=== PATIENT | male | born 1945 | race Caucasian/White ===

== ENCOUNTER 2017-07-30 07:00 | Inpatient (IN) | payer OTHER, MEDICARE ==
--- NOTE | 2017-07-25 15:23 | MH ---
cc: CLAUDETTE SIDHU DATE OF ADMISSION 07/30/2017 ADMITTING DIAGNOSIS Osteoarthritis of the left knee, varus deformity left knee, patellofemoral disorder left knee and pain of the left knee. HISTORY The patient is a 72-year-old white male who has had a rather lengthy history of pain involving his left knee. His history extended back to 1997 at which time the patient underwent an anterior cruciate ligament reconstruction as completed in the [facility]. The patient described an uneventful recovery at that time and for a number years thereafter he did reasonably well until approximately 2003 when he began to note recurrent soreness about his left knee. Initially he did not seek any follow-up evaluation or treatment but became progressively more symptomatic with pain for which he had undergone additional orthopedic evaluation in [address] Klarissa Be. The patient reports that he was diagnosed as having an arthritic condition for which he was instructed to begin taking Aleve. He did not seek any further disposition but attempted to conform to conservative modalities which included exercise activities which he had previously been instructed regarding prior therapy intervention. With the passage of time he became progressively more symptomatic with pain for which he was having difficulty conforming to his daily routine while continuing to take Aleve on a regular basis. He had been conforming to a regular exercise program but began to note obvious limitations with regards to this routine because of aggravation associated with weightbearing activities. He presented to the undersigned physician in June of this year and at that time x-ray studies revealed obvious degenerative change with near [id number] apposition about the medial compartment associated with a varus deformity of at least 10 degrees magnitude and secondary involvement of the patellofemoral articulation. A sclerotic tunnel effect was noted in the proximal tibia that was consistent with his prior history of ACL reconstruction. Findings and treatment options were reviewed with the patient at that time, the pros and cons of continuing with conservative management versus operative intervention that would involve total knee arthroplasty were outlined in detail. Emphasis was made regarding the fact that the decision to proceed with surgery would be left entirely to the patient's discretion. The patient indicated he was not interested in pursuing any additional conservative modalities at that time given his previous experience associated with his lack of improvement with continued conservative modalities as noted above and associated incapacitation with regards to all activities of daily living which included his inability to conform to a regular walking program. The patient indicated his desire to proceed with surgery as had previously been discussed and in compliance with his wishes he has been scheduled for admission at this time in order that the above be accomplished. PAST MEDICAL HISTORY HOSPITALIZATIONS AND SURGERIES 1. Surgery of his left knee involving ACL reconstruction. 2. Tonsillectomy. 3. Bilateral cataract excision with intraocular lens implants. 4. Colonoscopy. 5. Lumbar laminectomy. 6. Surgical stabilization of a fracture of the right index finger. MEDICAL ILLNESSES Macular degeneration. CURRENT MEDICATIONS 1. Multivitamin tablet daily. 2. I-caps twice daily. 3. Aleve daily. 4. Ocuvite eye drops. ALLERGIES The patient describes a drug allergy to PENICILLIN apparently noted during childhood but he is unable to be more specific with regards to an actual reaction noted. REVIEW OF SYSTEMS HEENT: He does wear glasses for reading purposes. Denies headache, seizure or syncope. No sinus congestion or epistaxis. Diminished auditory acuity for which bilateral hearing aids are utilized. No tinnitus. No bleeding gums or dysphagia. RESPIRATORY: Denies cough, shortness of breath, upper respiratory infection, pneumonia or tuberculosis. CARDIOVASCULAR: No angina or heart disease. GI: His appetite is good. Bowel movements are regular. No hepatitis, gallbladder disease, ulcers or hemorrhoids. : No urinary tract infection. No kidney stones. No prostate disease. MUSCULOSKELETAL: A history of a fracture of the left hand in addition to the right index finger as described. PSYCH: No psychiatric illness. His remaining review of systems is unremarkable and noncontributory. FAMILY HISTORY The patient has been a for 4 years, his at 67 years of age with a history of heart disease. He has two sons and one daughter, all of whom are described as being in good health. Family history is unremarkable for diabetes, tuberculosis, hypertension, carcinoma, heart, liver or kidney disease. Family history is positive for dementia. 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 He achieved a BS college degree. He denies active use of tobacco for at least 35 years but had been approximately a one-pack per day smoker for 20 years prior to that time. Ethanol consumption in the form of two to three beers daily. PHYSICAL EXAMINATION VITAL SIGNS: Height 5 feet, 8 inches, weight 192 pounds. GENERAL: An alert, oriented and responsive 72-year-old white male who sits quietly upon the examination table with no obvious distress. HEAD, EYES, EARS, NOSE, AND THROAT: Pupils are equally round and reactive to light. Extraocular movements full. Sclerae clear. External nares clear. External auditory canals clear. Semi-edentulous in the mandibular distribution. Mucous membranes pink and moist. Pharynx clear. NECK: Supple. Active range of motion without appreciable pain. Carotid pulse palpable bilaterally. Trachea midline. Thyroid without enlargement. LUNGS: Clear to auscultation and percussion. No CVA tenderness. No discomfort throughout the dorsolumbar spine. HEART: Regular rhythm. No murmur or gallop. ABDOMEN: Soft, nontender. Bowel sounds present. RECTAL: Per primary care physician. EXTREMITIES: Left knee: A well-healed surgical wound about the anterior aspect of the left knee consistent with prior history of surgery. There is no appreciable swelling or effusion. A bony prominence about the medial tibial plateau suggestive of underlying arthritic deformity. Apprehension and compression sign negative. Limited mobility towards the extremes of flexion beyond 115 degrees with subtle suggestion for crepitation. No collateral ligamentous instability. Shannon test and drawer sign negative. Pivot shift and Carroll sign positive for medial compartment pain. Straight-leg raising unremarkable at 80 degrees. Slight limitation of mobility about the left hip with internal rotation but no pain associated. Paul sign negative. Distal sensory grossly intact. Mild antalgic gait. NEUROLOGIC: Cranial nerves II-XII grossly intact excluding diminished auditory acuity. IMPRESSION Osteoarthritis of the left knee, varus deformity left knee, patellofemoral disorder left knee, pain left knee. PLAN Left total knee arthroplasty. The nature of the planned surgical procedure, the potential complications and risks associated, the expectations of surgery and the consent form were thoroughly reviewed with the patient prior to his admission to the hospital. Sergei has indicated his full understanding regarding all of the above and given consent to proceed with treatment as outlined. Medical evaluation and clearance for surgery will be completed by his primary care physician, Dr. Danette Shafer. Claudette Sidhu MD NBS/SSB /4:39 PM /3:19 PM
[~2017-07-30] VITALS: Ht 170.2 cm; Wt 86.7 kg
[2017-08-19] MEDS ORDERED: ALEV220T14 PO (07:44)
[2017-08-19] MEDS ORDERED: OCUVTAB4 PO (07:44)
[2017-08-19] MEDS ORDERED: MULT-65 PO (07:44)
--- NOTE | 2017-08-26 09:35 | MH ---
cc: Doyle Sidhu MD DATE OF ADMISSION: 08/28/2017 ADDENDUM: ADMITTING DIAGNOSIS: Osteoarthritis of the left knee, varus deformity, left knee, patellofemoral disorder, left knee, and pain in the left knee. Mr. Bermudez is a 72-year-old white male who had recently been scheduled to be admitted to the hospital for the above diagnosis in the anticipation of undergoing a left total knee arthroplasty. Prior to that admission, he was completing medical evaluation with his primary care physician who recommended that prior to surgery, he undergo a cardiac evaluation, which has subsequently been completed and the patient able to receive cardiac clearance in this regard. The patient contacted the office thereafter expressing his desire to proceed with surgery as had previously been planned and in compliance with his wishes, he was rescheduled for admission at this time. The remaining details of his history, as well as the pertinent findings of his physical examination, remain unchanged. Once again, the patient has indicated his full understanding regarding the planned surgical procedure, the potential complications and risks associated, the expectations of surgery and a consent form. In compliance with his wishes, he is being admitted at this time in order that left total knee arthroplasty be accomplished. Doyle Sidhu MD NBS/TI , 09:03 AM , 09:34 AM
[2017-08-28] MEDS ORDERED: CHLORHEXIDINE GLUCONATE 2 % 1 PACK (2 CLOTHS) TOPICAL PRN (08:15)
[2017-08-28] MEDS ORDERED: POVIDONE IODINE 7.5% SCRUB 118 ML BOTTLE TOPICAL SCH (08:15)
[2017-08-28] MEDS ORDERED: METOPROLOL TARTRATE 25 MG TAB PO PRN (08:15)
[2017-08-28] MEDS ORDERED: LACTATED RINGER'S 1000 ML IV PRN (08:15)
[2017-08-28] MEDS ORDERED: SODIUM CHLORID 0.9% 500 ML IV PRN (08:15)
[2017-08-28] MEDS ORDERED: POVIDONE IODINE 5% (ANTISEPSIS KIT) 4 APPLICATIONS EACH NARE PRN (08:15)
[2017-08-28] MEDS ORDERED: TRANEXAMIC ACID 1 GM PRIOR TO PROCEDURE IV SCH ×2 (08:30)
[2017-08-28] MEDS ORDERED: SODIUM CHLORIDE 0.9% INJ 10 ML ONE (08:51)
[2017-08-28] MEDS ORDERED: MIDAZOLAM HCL 2 MG/2 ML VIAL ONE (08:51)
[2017-08-28] MEDS ORDERED: SODIUM CHLORIDE 0.9% 20 ML VIAL ONE (08:53)
[2017-08-28] MEDS ORDERED: ACETAMINOPHEN 1000 MG/100 ML 100 ML IV ONE ×2 (09:23→13:15)
[2017-08-28] MEDS ORDERED: FAMOTIDINE 20 MG/2 ML VIAL ONE (09:24)
[2017-08-28] MEDS ORDERED: GENTAMICIN SULFATE 80 MG/2 ML VIAL ONE (09:46)
[2017-08-28] MEDS ORDERED: VANCOMYCIN HCL 1000 MG VIAL ONE (09:46)
[2017-08-28] MEDS ORDERED: VANCOMYCIN 1000 MG/NS 250 ML (for <70 kg) IV SCH ×2 (10:15)
[2017-08-28] MEDS ORDERED: TRANEXAMIC ACID 1 GM POST-OP IV SCH ×2 (11:30)
[2017-08-28] MEDS ORDERED: LACTATED RINGER'S 1000 ML INJ 1,000 ML IV ONE (12:00)
[2017-08-28] MEDS ORDERED: LIDOCAINE HCL 1% PF 5 ML SYRINGE OTHER ONE (12:00)
[2017-08-28] MEDS ORDERED: ROCURONIUM INJ 50 MG/5 ML SYRINGE IV PUSH ONE (12:00)
[2017-08-28] MEDS ORDERED: NEOSTIGMINE 5 MG/5 ML SYRINGE IV PUSH ONE (12:00)
[2017-08-28] MEDS ORDERED: ONDANSETRON HCL 4 MG/2 ML VIAL IV ONE (12:00)
[2017-08-28] MEDS ORDERED: PROPOFOL 200 MG/20 ML AMP IV ONE (12:00)
[2017-08-28] MEDS ORDERED: GLYCOPYRROLATE 1 MG/5 ML SYRINGE IV PUSH ONE (12:00)
[2017-08-28] MEDS ORDERED: ePHEDrine/NS 25 MG/5 ML SYRINGE IV ONE (12:00)
[2017-08-28] MEDS ORDERED: DEXAMETHASONE SOD PHOS 4 MG/ML VIAL IV ONE (12:00)
[2017-08-28] MEDS ORDERED: KETOROLAC TROMETHAMINE 30 MG/ML (IVP) VIAL IV PUSH ONE (12:00)
[2017-08-28] MEDS ORDERED: DO NOT ADM ANY ANTICOAGULANT DRUGS PRN (12:08)
[2017-08-28] MEDS: DEXT 5%-NACL 0.45% 1000 ML INJ 1,000 ML IV SCH ×2 (12:18→20:25)
--- NOTE | 2017-08-28 12:22 | HHI.FF ---
Face to Face Verification Diagnosis: (1) DJD (degenerative joint disease) of knee Physical Therapy Gait training Knee: Total knee, Protocol: Left, Full weight bearing Left LE Weight Bearing: WB as tolerated Left LE Range of Motion: Active ROM Nursing Dressing Changes: Daily dressing change I have seen patient Sergei Bermudez on 08/28/17. My clinical findings support the need for the requested home health care services because: Limited ability to care for self High risk of falls I certify that my clinical findings support that this patient is homebound because: Post-op weakness Unsteady gait/balance Unsafe to leave home unassisted Doyle Sidhu MD Aug 28, 2017 12:22
[2017-08-28] MEDS ORDERED: *MEPERIDINE 25 MG INJ VIAL PERIprocedural Use ONLY ONE (12:23)
[2017-08-28] MEDS ORDERED: MORPHINE SULFATE 30 MG/30 ML PCA IV SCH (12:30)
[2017-08-28] MEDS ORDERED: ACETAMINOPHEN 325 MG TAB PO PRN (12:30)
[2017-08-28] MEDS ORDERED: DOCUSATE SODIUM 100 MG CAP PO PRN (12:30)
[2017-08-28] MEDS ORDERED: ONDANSETRON HCL 4 MG/2 ML VIAL IVP PRN (12:30)
[2017-08-28] MEDS ORDERED: ACETAMINOPHEN/HYDROcodone 325 MG/5 MG TAB PO PRN (12:30)
[2017-08-28] MEDS ORDERED: NALOXONE HCL 0.4 MG/ML AMP IV PUSH PRN (12:30)
[2017-08-28] MEDS ORDERED: TRANEXAMIC ACID INJ 1,000 MG in SODIUM CHLORIDE 0.9% INJ 100 ML IV SCH (12:30)
[2017-08-28] MEDS ORDERED: MISCELLANEOUS PHARMACY INFORMATION XX SCH (12:30)
[2017-08-28] MEDS ORDERED: Post-op Orders (for Pharmacy) XX ONE (12:30)
[2017-08-28] MEDS ORDERED: diphenhydrAMINE HCL 25 MG CAP PO PRN (12:30)
--- NOTE | 2017-08-28 12:53 | MP ---
cc: Doyle Sidhu MD DATE OF OPERATION: 08/28/2017 PREOPERATIVE DIAGNOSIS: Osteoarthritis left knee, varus deformity left knee, patellofemoral disorder left knee and pain of the left knee. POSTOPERATIVE DIAGNOSIS: Osteoarthritis left knee, varus deformity left knee, patellofemoral disorder left knee and pain of the left knee. PROCEDURE PERFORMED: Left total knee arthroplasty. SURGEON: MD Thea ANESTHESIA: General endotracheal. INDICATIONS: This 72-year-old white male with a lengthy history of pain involving his left knee says his history went back to 1997 at which time he underwent an anterior cruciate ligament reconstruction as completed in the [facility]. The patient described an uneventful recovery at that time and for a number of years thereafter he did reasonably well until approximately 2003 when he began to experience recurrent soreness about his left knee. Initially, he did not seek any followup evaluation, but became progressively more symptomatic for pain, for which he underwent additional orthopedic evaluation in 2011. At that time, he was diagnosed as having an arthritic condition for which he was instructed to begin taking Aleve. Once again he did not seek any further disposition, but attempted to conform to conservative modalities which included exercise activities as had previously been instructed regarding prior therapy intervention. With the passage of time, he became progressively more symptomatic with pain for which he was having difficulty conforming to his daily routine while continuing to utilize anti-inflammatory medication on a regular basis. He had also followed a regular exercise program, but began to note obvious limitations with regards to this routine because of aggravation associated with weightbearing activities. He presented to the undersigned physician in June of this year and at that time x-ray studies revealed obvious degenerative change with near [id number] apposition about the medial compartment, associated with a varus deformity of at least 10 degrees magnitude and secondary involvement of the patellofemoral articulation. A sclerotic tunnel was noted about the proximal tibia that was felt to be consistent with his prior history of anterior cruciate ligament reconstruction. Findings and treatment options were reviewed with the patient at that time. The pros and cons of continuing with conservative management versus operative intervention that would involve total knee arthroplasty were outlined. Emphasis was made regarding the fact that the decision to proceed with surgery would be left entirely to the patient's discretion. At that time, the patient indicated he was not interested in pursuing any additional conservative modalities given his previous experience and lack of improvement and noting continued pain about his left knee with associated incapacitation regarding all activities of daily living, which included his inability to conform to a regular walking program. He expressed a desire to proceed with surgery as discussed and in compliance with his wishes, he was scheduled for admission at this time in order that the above be accomplished. FORMAT: Following the induction of satisfactory general anesthesia by endotracheal intubation as completed per the Department of Anesthesia, a tourniquet was established around the proximal portion of the left lower extremity. The extremity proper was isolated with a U-drape, thereafter being prepped with Betadine solution and draped into a sterile field in the routine manner. Prior to initiation of the actual procedure, the standard timeout protocol was completed. All parameters were appropriately addressed and confirmed by operating room personnel. The extremity was elevated for approximately 1 minute and the tourniquet, thus inflated to 250 mmHg pressure. A sharp skin incision was initiated midline over the anterior aspect of the knee, incorporating a previous surgical scar and developed through underlying subcutaneous tissue with hemostasis maintained by electrocautery. By deepening dissection, the anterior capsule was exposed, the medial capsulotomy completed and the patella subluxed in a lateral orientation. Examination of the joint space, revealed severe degenerative changes, especially throughout the medial compartment where there was complete erosion of articular cartilage and subchondral bone exposed. The degenerative process extended in the patellofemoral articulation. The articular surface of the patella was resected with power saw. The 3 holed guide was utilized for establishing post-holes. Medial and lateral meniscus structures were excised as was the anterior cruciate ligament graft. A centering hole was placed in the distal aspect of the femur, allowing positioning of the intramedullary guide. The distal femoral cutting jig was attached and the distal femur resected. AP measurement noted 70 mm sizing to be appropriate. The matching cutting block was positioned. Anterior, posterior and chamfer cuts were completed. The tibial plateau was subluxed in an anterior orientation allowing positioning of the extramedullary guide. The tibial plateau was resected and measured with 79 mm sizing determined to be satisfactory. A trial reduction followed utilizing a 70 mm anatomic femoral component, a 79 mm tibial base with both 10 and 12 mm bearing inserts trialed. The 12 mm thickness was determined to be the more favorable fit. The knee was readily brought to full extension. There was no laxity to varus and valgus stress at both 0 and 90 degrees flexed posture. Orientation was confirmed as being appropriate with measurement of the pelvic guide through the mechanical access of the knee. A trial reduction followed utilizing a 34 mm standard 3 post-patellar button. Once again good tracking was noted with no tendency toward subluxation. All trial components being removed, the remaining portion of the proximal tibia was prepared for insertion of the permanent component. The joint space was thoroughly lavaged with pulsating antibiotic solution, hemostasis maintained by electrocautery. An autogenous bone plug was inserted and the distal femoral guide hole and thereafter a preparation of Palacos bone cement was utilized in inserting knee components in a sequential fashion which included a 79 mm fixed cruciate tibial plate to which a 12 mm Vanguard tibial bearing insert was secured with locking vela. The 70 mm Vanguard femoral component was firmly seated onto the distal femur, excess cement being removed. The knee was brought to full extension and thereafter, the 34 mm standard 3 post-patellar button was attached and maintained in place with patellar clamp while cement hardening was completed. Final range of motion assessment noted good tracking and stability throughout the knee. Irrigation was repeated with hemostasis maintained. Hemovac drain tubes were inserted through superior stab wounds. The capsule was repaired with 0 Vicryl suture. The remaining portion of the wound was closed in layers in the routine manner, skin margins being reapproximated with a running subcuticular 3-0 Vicryl suture over which Steri-Strips were applied. Xeroform gauze and a bulky dry sterile dressing placed. Tourniquet deflated after 63 minutes of tourniquet time, the extremity being supported in a canvas knee splint. Anesthesia was discontinued and he was thereafter transferred to a hospital bed and returned to the recovery room in satisfactory condition, having tolerated his operative procedure well. Estimated blood loss was approximately 100 mL as determined per Anesthesia. All implants were of the [employer] senior marketing analyst. MD LISA Spann/SB , 12:15 PM , 12:51 PM
--- NOTE | 2017-08-28 13:04 | RADRPT ---
EXAM DATE/TIME: 08/28/2017 12:47 [facility] COMPARISON: No previous studies available for comparison. INDICATIONS : Post op left total knee replacement. MEDICAL HISTORY : None. SURGICAL HISTORY : None. ENCOUNTER: Initial ACUITY: 1 day PAIN SCORE: 0/10 LOCATION: Left knee. FINDINGS: Status post placement of a left knee prosthesis. There is good position and alignment of the bony str uctures and prosthesis. Postsurgical changes are demonstrated. CONCLUSION: Good position and alignment on this postoperative study. Greg Lainez MD on August 28, 2017 at 13:02 Board Certified Radiologist. This report was verified electronically.
[2017-08-28] MEDS ORDERED: DEXAMETHASONE SOD PHOS 20 MG/5 ML VIAL IV ONE (13:15)
[2017-08-28] MEDS ORDERED: FAMOTIDINE 20 MG/2 ML VIAL IV ONE (13:15)
[2017-08-28] MEDS: PCA - TOTAL MG MORPHINE DELIVERED PER SHIFT SCH ×2 (14:00→22:00)
[2017-08-28 14:40] VITALS: BP 127/80; PULSE 76; RESP 18; TEMP 95.4; O2SAT 96
[2017-08-28 20:25] VITALS: BP 146/76; PULSE 65; RESP 18; TEMP 99; O2SAT 96
[2017-08-28] MEDS ORDERED: ZOLPIDEM TARTRATE 5 MG TAB PO PRN (21:00)
[2017-08-28] MEDS: VANCOMYCIN INJ 1,000 MG in SODIUM CHLOR 0.9% 250 ML INJ 250 ML IV SCH (22:18)
[2017-08-28] MEDS ORDERED: ENALAPRILAT 1.25 MG/ML VIAL IV PUSH PRN (22:45)
--- NOTE | 2017-08-28 22:49 | PD.CONS ---
HPI Service [facility] Consult Requested By Primary Care Physician LYN Peguero Diagnoses: History of Present Illness 72-year-old male with history of osteoarthritis of the left knee, who is seen following elective left total knee arthroplasty. Patient reports pain is under control. Denies any chest pain, shortness breath, nausea, vomiting, lightheadedness, dizziness. Denies any constipation. Review of Systems Except as stated in HPI: all other systems reviewed are Neg Past Family Social History Allergies: Coded Allergies: Penicillins (Verified Allergy, Unknown, 08/28/17) Past Medical History History of macular degeneration. No other medical history Past Surgical History Left ACL reconstruction Tonsillectomy Bilateral cataract surgery Colonoscopy Lumbar laminectomy ORIF right index finger fracture Hernia surgery as a youth. Reported Medications Naproxen 220 mg by mouth twice a day Multivitamin daily Family History Mother at age 94 from old age. Father in his 80s and his sleep. Social History Patient quit smoking 40 years ago. Patient drinks on average 3 beers per day. Denies any withdrawal in the past. Denies any illicit drug use Physical Exam Vital Signs Vital Signs Date Time Temp Pulse Resp B/P (MAP) Pulse Ox O2 Delivery O2 Flow Rate FiO2 08/28/17 22:00 18 08/28/17 20:25 99.0 65 18 146/76 (99) 96 08/28/17 14:40 95.4 76 18 127/80 (96) 96 08/28/17 13:30 80 14 163/72 (102) 96 Nasal Cannula 2 08/28/17 13:23 14 08/28/17 13:00 74 14 181/86 (117) 96 Nasal Cannula 2 08/28/17 12:45 74 14 177/83 (114) 96 Nasal Cannula 2 08/28/17 12:30 75 14 177/83 (114) 96 Nasal Cannula 2 08/28/17 12:15 80 14 140/89 (106) 96 Nasal Cannula 2 08/28/17 12:09 97.7 82 14 134/91 (105) 97 08/28/17 08:50 97 Nasal Cannula 2 08/28/17 08:11 98.5 64 18 174/89 (117) 95 Physical Exam GENERAL: This is a well-nourished, well-developed patient, in no apparent distress.alert and oriented 3. SKIN: No rashes, ecchymoses or lesions. Cool and dry. HEAD: Atraumatic. Normocephalic. No temporal or scalp tenderness. EYES: Pupils equal round and reactive. Extraocular motions intact. No scleral icterus. No injection or drainage. ENT: Nose without bleeding, purulent drainage or septal hematoma. Throat without erythema, tonsillar hypertrophy or exudate. Uvula midline. Airway patent. NECK: Trachea midline. No JVD or lymphadenopathy. Supple, nontender, no meningeal signs. CARDIOVASCULAR: Regular rate and rhythm without murmurs, gallops, or rubs. RESPIRATORY: Clear to auscultation. Breath sounds equal bilaterally. No wheezes , rales, or rhonchi. GASTROINTESTINAL: Abdomen soft, non-tender, nondistended. No hepato-splenomegaly , or palpable masses. No guarding. MUSCULOSKELETAL: Extremities without clubbing, cyanosis, or edema. No joint tenderness, effusion, or edema noted. No calf tenderness. Negative Homans sign bilaterally. NEUROLOGICAL: Awake and alert. Cranial nerves II through XII intact. Motor and sensory grossly within normal limits. Five out of 5 muscle strength in bilateral upper extremities. Postoperative knee not examined. Peripheral profusion intact.. Normal speech. Assessment and Plan Assessment and Plan //Postoperative day 0 elective left total knee arthroplasty Postsurgical management as per surgical service Await return of bowel function //Hypertensive in the 170s. This is improved 140s this afternoon. No previous diagnosis of hypertension. This could be secondary to pain. We'll continue to monitor. Order Vasotec as needed //Prophylaxis. Anticoagulation as per surgical service. Discussed Condition With patient, nurse. Chava Grimes MD Aug 28, 2017 22:49
[2017-08-29] VITALS (7 sets, daily range): BP systolic 126–168; BP diastolic 68–86; PULSE 70–96; RESP 18; TEMP 97.1–99.9; O2SAT 95–100
[2017-08-29] MEDS: PCA - TOTAL MG MORPHINE DELIVERED PER SHIFT SCH ×2 (05:39→22:00)
[2017-08-29] MEDS ORDERED: HYDR-3516 PO (05:57)
[2017-08-29] MEDS ORDERED: ASPI-183 PO (05:57)
[2017-08-29] MEDS ORDERED: WALKER WHEELS/F1 MIS (05:59)
[2017-08-29 06:52] LABS: HEMATOCRIT 38.3 % (39.0-51.0); HEMOGLOBIN 13.1 GM/DL (13.0-17.0)
[2017-08-29] MEDS ORDERED: PNEUMOCOCCAL POLYVALENT INJ 25 MCG/0.5 ML SYR IM ONE (10:00)
[2017-08-29] MEDS: VANCOMYCIN INJ 1,000 MG in SODIUM CHLOR 0.9% 250 ML INJ 250 ML IV SCH (10:21)
[2017-08-29] MEDS: RIVAROXABAN 10 MG TAB PO SCH (10:22)
--- NOTE | 2017-08-29 12:43 | HHI.PR ---
Subjective Remarks pt doing well. no cp or sob. no n,v. awaiting BM. Objective Vital Signs Date Time Temp Pulse Resp B/P (MAP) Pulse Ox O2 Delivery O2 Flow Rate FiO2 08/29/17 12:00 98.6 73 18 163/86 (111) 95 08/29/17 08:00 97.1 79 18 132/75 (94) 95 08/29/17 05:39 18 08/29/17 03:50 98.6 96 18 126/70 (88) 97 08/29/17 00:50 97.3 90 18 127/68 (87) 96 08/28/17 22:00 18 08/28/17 20:25 99.0 65 18 146/76 (99) 96 08/28/17 14:40 95.4 76 18 127/80 (96) 96 08/28/17 13:30 80 14 163/72 (102) 96 Nasal Cannula 2 08/28/17 13:23 14 08/28/17 13:00 74 14 181/86 (117) 96 Nasal Cannula 2 08/28/17 12:45 74 14 177/83 (114) 96 Nasal Cannula 2 I/O 08/28/17 08/28/17 08/28/17 08/29/17 08/29/17 08/29/17 07:00 15:00 23:00 07:00 15:00 23:00 Intake Total 2120 ml 1883 ml 1289 ml Output Total 100 ml 660 ml 685 ml Balance 2020 ml 1223 ml 604 ml Intake Oral 720 ml 480 ml IV Total 620 ml 913 ml 809 ml Autotransfusion 250 ml Other 1500 ml Output Urine Total 300 ml 525 ml Drainage Total 360 ml 160 ml Estimated Blood Loss 100 ml # Bowel Movements 0 0 Result Diagram: 08/29/17 0610 Objective Remarks GENERAL: sitting up in bed. appears comfortable. SKIN: Warm and dry. HEAD: Normocephalic. EYES: No scleral icterus. No injection or drainage. NECK: Supple, trachea midline. No JVD. CARDIOVASCULAR: Regular rate and rhythm without murmurs, gallops, or rubs. RESPIRATORY: Breath sounds equal bilaterally. No accessory muscle use. GASTROINTESTINAL: Abdomen soft, non-tender, nondistended. MUSCULOSKELETAL: No cyanosis, or edema. BACK: Nontender without obvious deformity. No CVA tenderness. A/P Assessment and Plan //Postoperative day 1 elective left total knee arthroplasty Postsurgical management as per surgical service Await return of bowel function //Hypertensive in the 170s. This is improved 140s this afternoon. No previous diagnosis of hypertension. This could be secondary to pain. We'll continue to monitor. Order Vasotec as needed =BP improved. likely 2/2 pain. Continue to monitor. //Prophylaxis. Anticoagulation as per surgical service. Discharge Planning We will continue to follow. Chava Grimes MD Aug 29, 2017 12:43
[2017-08-29] MEDS: ACETAMINOPHEN/HYDROcodone 325 MG/5 MG TAB PO PRN (16:44)
[2017-08-30 00:25] VITALS: BP 160/85; PULSE 64; RESP 18; TEMP 99.8; O2SAT 97
[2017-08-30] MEDS: ACETAMINOPHEN/HYDROcodone 325 MG/5 MG TAB PO PRN ×2 (00:43→09:18)
[2017-08-30 04:50] VITALS: BP 119/62; PULSE 70; RESP 20; TEMP 95.6; O2SAT 97
[2017-08-30] MEDS: PCA - TOTAL MG MORPHINE DELIVERED PER SHIFT SCH (06:00)
--- NOTE | 2017-08-30 06:58 | MD ---
cc: Doyle Sidhu MD, Elizabeth C ARNP DATE OF DISCHARGE: 08/30/2017 ADMITTING DIAGNOSES: Osteoarthritis of the left knee, varus deformity, left knee, patellofemoral disorder, left knee and pain of the left knee. DISCHARGE DIAGNOSIS: Osteoarthritis of the left knee, varus deformity, left knee, patellofemoral disorder, left knee and pain of the left knee. HISTORY: This is a 72-year-old white male with a lengthy history of left knee pain extending back to 1997, at which time he had undergone anterior cruciate ligament reconstruction as completed in the [facility]. The patient described an uneventful recovery at that time for a number of years thereafter did reasonably well until approximately 2003 when he began to experience recurrent pain about the knee. He did not initially seek any followup evaluation or treatment, but became progressively more symptomatic with pain until 2011 when he did seek orthopedic evaluation. At that time, he was diagnosed as having an arthritic condition for which he was advised to begin taking Aleve. Again, he did not seek any further disposition and conforming to conservative modalities which included an exercise program that he had been instructed to follow as related to prior therapy intervention. Unfortunately, he became progressively more symptomatic with pain, associated with difficulty conforming to his daily routine. Aleve was not proven to be of any significant benefit. He presented to the undersigned physician in June of this year and at that time, his x-ray studies revealed obvious degenerative changes with near [id number] apposition about the medial compartment associated with a varus deformity of at least 10 degrees magnitude and secondary involvement of the patellofemoral articulation. A sclerotic tunnel was identified in the proximal tibia that was consistent with his prior history of anterior cruciate ligament reconstruction. Findings and treatment options were reviewed with the patient at that time. The pros and cons of continuing with conservative management versus operative intervention that would involve a total knee arthroplasty were outlined. Emphasis was made regarding the fact that the decision to proceed with surgery would be left entirely to the patient's discretion. The patient indicated that he was not interested in pursuing any additional conservative modalities, given his previous experience and associated lack of improvement with continued conservative modalities and his incapacitation regarding all activities of daily living, which included his inability to conform to a regular walking program. He expressed a desire to proceed with surgery as had previously been discussed and in compliance with his wishes, he was scheduled for admission in order that total knee arthroplasty be completed. His physical examination at the time of admission revealed a well-healed surgical wound about the anterior aspect of the left knee consistent with his prior history of surgery. There is no appreciable swelling or effusion, bony prominence about the medial tibial plateau suggestive underlying arthritic deformity. Apprehension and compression sign negative. Limited mobility toward the extreme of flexion beyond 115 degrees with subtle suggestion for crepitation. No collateral ligamentous instability. Shannon test and drawer sign negative. Pivot shift and Carroll sign positive for medial compartment pain. Straight leg raising unremarkable at 80 degrees. Limited mobility about the left hip with internal rotation, but no significant pain. Paul sign negative. Distal sensory grossly intact. Antalgic gait. HOSPITAL COURSE: Prior to admission hospital, the patient had undergone medical evaluation and clearance for surgery as completed by his primary care physician, Dr. Danette Shafer. He was taken to the operating room 08/28/2017 and on that date underwent a left total knee arthroplasty completed in an uncomplicated manner. The patient was noted to have tolerated his operative procedure well. He was progressively mobilized under the guidance of physical therapy being permitted weightbearing to tolerance about the left lower extremity. Followup examination of the surgical wound noted to be intact, healing favorably with no evidence of infection. Medical followup per the hospitalist service. DVT prophylaxis initiated. Tongue Carrier consulted to assist with discharge planning. Hemoglobin and hematocrit assessment postoperatively was 13.1 and 38.3 respectively. The patient had indicated his desire to be discharged home and continue his rehabilitation on an outpatient basis. Plans were finalized in this regard and pending medical clearance, he was scheduled for discharge on the second postoperative day, at which time he was making favorable progress with regard to his initial rehabilitation program. He was scheduled to be seen in office followup in approximately 4 weeks. CONDITION AT THE TIME OF DISCHARGE: Stable. PROGNOSIS: Favorable. DISCHARGE MEDICATIONS: Included hydrocodone 5/325, #60 and aspirin 325 mg 1 tab twice daily for 3 weeks, #40. Doyle Sidhu MD NBS/DL , 06:32 AM , 06:55 AM
[2017-08-30 08:00] VITALS: BP 129/86; PULSE 79; RESP 18; TEMP 99.9; O2SAT 96
[2017-08-30 12:00] VITALS: BP 139/65; PULSE 82; RESP 18; TEMP 98.9; O2SAT 98
[2017-08-30] MEDS: RIVAROXABAN 10 MG TAB PO SCH (12:20)
== END 2017-08-30 12:37 | disposition home health service (06) | DRG 470 ==
LOC: HSDI 08-28 07:36 → N06A 08-28 14:21
PROVIDERS: ADMIT Orthopaedic Surgery; ATTEND Orthopaedic Surgery
PROC: 0SRD0J9 Replacement of Left Knee Joint with Synthetic Substitute, Cemented, Open Approach (ICD-10-PCS; principal; 2017-08-28 09:43)
DX: M17.12 Unilateral primary osteoarthritis, left knee (principal); H35.30 Unspecified macular degeneration; M22.2X2 Patellofemoral disorders, left knee; M21.162 Varus deformity, not elsewhere classified, left knee; R03.0 Elevated blood-pressure reading, without diagnosis of hypertension; Z88.0 Allergy status to penicillin; Z87.891 Personal history of nicotine dependence
CPT/HCPCS: 73560; 85014; 85018; 86850; 86900; 86901; 88305; C1776; J0131; J1100; J1580; J1885; J2175; J2250; J2270; J2405; J2710; J3010; J3370; J7050; J7120; L1830

== ENCOUNTER → 2017-08-19 | Outpatient (CLI) | payer OTHER ==
[~2017-08-19] MED LIST: ALEV220T14 PO; MULT-65 PO; OCUVTAB4 PO
== END ==
LOC: CPRE 07:57
PROVIDERS: ATTEND Orthopaedic Surgery
DX: Z01.810 Encounter for preprocedural cardiovascular examination (principal); Z01.811 Encounter for preprocedural respiratory examination; Z01.812 Encounter for preprocedural laboratory examination; Z01.818 Encounter for other preprocedural examination